=== PATIENT | female | born 1950 | race Caucasian/White ===

== ENCOUNTER 2021-11-27 15:51 | Inpatient (IN) | payer OTHER, MEDICARE ==
[2021-11-27] MEDS ORDERED: Lidocaine 1% PF 5 ML VIAL ONE (16:39)
[2021-11-27] MEDS ORDERED: HYDROmorphone 0.5 MG/0.5 ML SYRINGE ONE (16:39)
[2021-11-27] MEDS ORDERED: Ketamine 50 MG/ML (10ML VIAL) ONE (16:39)
[2021-11-27] MEDS ORDERED: Ondansetron PF 4 MG/2 ML Vial IVP PRN (16:53)
[2021-11-27] MEDS ORDERED: Morphine 2 MG/ML VIAL SLOW IVP PRN (16:53)
[2021-11-27] MEDS ORDERED: Promethazine HCl 25 MG/ML VIAL IM PRN (16:53)
[2021-11-27] MEDS ORDERED: hydrALAZINE 20 MG/ML VIAL SLOW IVP PRN (16:53)
[2021-11-27] MEDS ORDERED: Cyclobenzaprine 10 MG TAB PO PRN (16:56)
[2021-11-27] MEDS ORDERED: Ketorolac Tromethamine 30 MG/ML VIAL IVP SCH ×3 (17:00→20:15)
[2021-11-27] MEDS ORDERED: traMADol HCl 50 MG TAB PO SCH ×2 (17:00→20:15)
[2021-11-27 18:16] LABS: Prothrombin Time 13.2 sec (12.0-14.7)
[2021-11-27 18:17] LABS: PTT 32.5 sec (22.9-36.1)
[2021-11-27 18:24] LABS: Anion Gap 13 mmol/L (10-20); BUN (Urea Nitrogen) 8 mg/dL (9.8-20.1); Calc. Creatinine Clearance 0 mL/min (70-130); Calcium 8.9 mg/dL (7.8-10.44); Carbon Dioxide 24 mmol/L (23-31); Chloride 106 mmol/L (98-107); Glucose 111 mg/dL (83-110); Magnesium 1.9 mg/dL (1.6-2.6); Phosphorus 3.9 mg/dL (2.3-4.7); Potassium 3.8 mmol/L (3.5-5.1); Sodium 139 mmol/L (136-145)
[2021-11-27] MEDS ORDERED: Acetaminophen 500 MG TAB PO SCH ×2 (18:30→20:00)
[2021-11-27 18:33] LABS: #Basophils 0.1 thou/uL (0.0-0.2); #Eosinphils 0.1 thou/uL (0.0-0.7); #Lymphocytes 1.3 thou/uL (1.20-3.40); #Monocytes 0.8 thou/uL (0.11-0.59); #Neutrophils 10.3 thou/uL (1.40-6.50); %Basophils 0.4 % (0.0-1.0); %Eosinophils 0.5 % (0.0-10.0); %Monocytes 6.2 % (0.0-10.0); %Neutrophils 82.8 % (42.0-75.0); Hemoglobin 12.5 g/dL (12.0-16.0); Mean Corpuscular HGB CONC 32.5 g/dL (32.0-36.0); Mean Corpuscular Hemoglobin 32.1 pg (27.0-31.0); Mean Corpuscular Volume 98.7 fL (78.0-98.0); Mean Platelet Volume 7.3 fL (7.4-10.4); Platelet Count 324 thou/uL (130-400); RBC Distribution Width 11.3 % (11.5-14.5); White Blood Cell (WBC) Count 12.4 thou/uL (4.8-10.8)
[2021-11-27] MEDS: Senokot S 8.6-50 MG TAB PO SCH (21:05)
[2021-11-27] MEDS: Famotidine/PF 20 mg/2ml Vial SLOW IVP SCH (21:06)
[2021-11-27] MEDS: Sodium Chloride 0.9% 1,000 ML IV SCH (21:08)
[2021-11-27 21:37] VITALS: BMI 28.0
[2021-11-28] MEDS: Ketorolac Tromethamine 30 MG/ML VIAL IVP SCH ×4 (01:18→17:38)
[2021-11-28] MEDS: traMADol HCl 50 MG TAB PO SCH ×4 (01:18→17:36)
[2021-11-28] MEDS: Acetaminophen 500 MG TAB PO SCH ×4 (01:18→17:37)
[2021-11-28 05:09] LABS: SARS-CoV-2 NAA Rapid Test Not Detected (NotDetected)
[2021-11-28] MEDS: Sodium Chloride 0.9% 1,000 ML IV SCH ×2 (05:36→10:21)
[2021-11-28] MEDS ORDERED: Clindamycin/D5W 900 MG in Premix Bag 1 BAG IVPB SCH (09:00)
[2021-11-28] MEDS: Polyethylene Glycol 3350 17 GM Packet PO SCH (09:10)
[2021-11-28] MEDS: Famotidine/PF 20 mg/2ml Vial SLOW IVP SCH ×2 (09:22→20:51)
[2021-11-28] MEDS: Senokot S 8.6-50 MG TAB PO SCH ×2 (09:23→20:51)
[2021-11-28] MEDS ORDERED: Clindamycin/D5W 900 mg/50 ml Premix Bag ONE (10:13)
[2021-11-28] MEDS ORDERED: fentaNYL Citrate/PF 100 MCG/2 ML SYRINGE ONE (10:14)
[2021-11-28] MEDS ORDERED: Lidocaine 1% PF 5 ML VIAL ONE (10:29)
[2021-11-28] MEDS ORDERED: PROPOFOL 200 MG/20 ML VIAL ONE (10:29)
[2021-11-28] MEDS ORDERED: Glycopyrrolate 0.2 MG/ML 5 ML SYRINGE ONE (10:29)
[2021-11-28] MEDS ORDERED: ePHEDrine 50 MG/ML VIAL ONE (10:29)
[2021-11-28] MEDS ORDERED: PHENYLEPHRINE-NS 100 MCG/ML 10 ML SYRINGE ONE (10:29)
[2021-11-28] MEDS ORDERED: Ondansetron PF 4 MG/2 ML Vial ONE (10:29)
[2021-11-28] MEDS ORDERED: Dexamethasone 20 MG/5 ML VIAL ONE (10:29)
[2021-11-28] MEDS ORDERED: Rocuronium Bromide 10 MG/ML (10ML VIAL) ONE (10:29)
[2021-11-28] MEDS ORDERED: HYDROmorphone 2 MG/ML VIAL ONE (11:14)
[2021-11-28] MEDS ORDERED: SUGAMMADEX SODIUM 200 MG/2 ML VIAL ONE (11:43)
[2021-11-28] MEDS ORDERED: Promethazine HCl 25 MG/ML VIAL IVPB PRN (12:09)
[2021-11-28] MEDS ORDERED: Ondansetron HCl/PF 4 MG/2 ML Vial IVP PRN (12:09)
[2021-11-28] MEDS ORDERED: Promethazine HCl 25 MG/ML VIAL IM PRN (12:09)
[2021-11-28] MEDS ORDERED: Fentanyl 100 MCG/2 ML VIAL ONE (12:18)
[2021-11-28] MEDS: Clindamycin/D5W 900 MG in Premix Bag 1 BAG IVPB SCH (17:39)
[2021-11-29] MEDS: traMADol HCl 50 MG TAB PO SCH ×3 (00:35→11:14)
[2021-11-29] MEDS: Acetaminophen 500 MG TAB PO SCH ×3 (00:35→11:14)
[2021-11-29] MEDS: Clindamycin/D5W 900 MG in Premix Bag 1 BAG IVPB SCH (01:50)
[2021-11-29] MEDS: Famotidine/PF 20 mg/2ml Vial SLOW IVP SCH (08:52)
[2021-11-29] MEDS: Polyethylene Glycol 3350 17 GM Packet PO SCH (08:52)
[2021-11-29] MEDS: Senokot S 8.6-50 MG TAB PO SCH (08:52)
[2021-11-29 11:47] VITALS: BP 149/82; TEMP 97.9
[2021-11-29] MEDS ORDERED: Hydrochlorothiazide 25 MG TAB PO SCH (12:33)
[2021-11-30] MEDS ORDERED: Levothyroxine Sodium 112 MCG TAB PO SCH (06:00)
[2021-11-30] MEDS ORDERED: Hydrochlorothiazide 25 MG TAB PO SCH (09:00)
[2021-11-30] MEDS ORDERED: busPIRone HCl 5 MG TAB PO SCH (09:00)
== END 2021-11-29 13:24 | disposition home or self-care (01) | DRG 494 ==
LOC: ERS 15:51 → SURG A 17:21
PROVIDERS: ADMIT Specialist; ATTEND Specialist
PROC: 0PSG04Z Reposition Left Humeral Shaft with Internal Fixation Device, Open Approach (ICD-10-PCS; principal; 2021-11-28)
DX: S42.332A Displaced oblique fracture of shaft of humerus, left arm, initial encounter for closed fracture (principal); Z20.822 Contact with and (suspected) exposure to COVID-19; I10 Essential (primary) hypertension; E03.9 Hypothyroidism, unspecified; F41.9 Anxiety disorder, unspecified; M06.9 Rheumatoid arthritis, unspecified; Z96.652 Presence of left artificial knee joint; W01.0XXA Fall on same level from slipping, tripping and stumbling without subsequent striking against object, initial encounter; Y92.000 Kitchen of unspecified non-institutional (private) residence as the place of occurrence of the external cause; Z79.899 Other long term (current) drug therapy; Z79.890 Hormone replacement therapy; Z88.0 Allergy status to penicillin
CPT/HCPCS: 29065; 36415; 72190; 76000; 80048; 83735; 84100; 85025; 85610; 85730; 86850; 86900; 86901; 96374; C1713; G0390; J1100; J1170; J1885; J2405; J2704; J3010; J3490; J7050; S0028; U0002; U0003; U0005

== ENCOUNTER 2021-12-29 14:11 | Outpatient (CLI) | payer MEDICARE, OTHER | END 2021-12-29 14:12 | disposition home or self-care (01) | LOC: BICULT 14:11 | PROVIDERS: ATTEND Family Medicine | DX: E04.1 Nontoxic single thyroid nodule (principal) | CPT/HCPCS: 76536 ==

== ENCOUNTER 2022-01-11 00:09 | Inpatient (IN) | payer OTHER ==
[2022-01-11] MEDS ORDERED: Ondansetron PF 4 MG/2 ML Vial IVP PRN (02:55)
[2022-01-11] MEDS ORDERED: HumaLOG 300 UNITS/3 ML VIAL SC PRN (02:55)
[2022-01-11] MEDS ORDERED: Dextrose 5% in Water 1,000 ML IV PRN (02:55)
[2022-01-11] MEDS ORDERED: Ondansetron ODT 4 MG TAB PO PRN (02:55)
[2022-01-11] MEDS ORDERED: Dextrose 50% Abboject 50 ML SYRINGE SLOW IVP PRN (02:55)
[2022-01-11 02:58] VITALS: BMI 27.0
[2022-01-11] MEDS ORDERED: traMADol HCl 50 MG TAB PO PRN (03:02)
[2022-01-11] MEDS ORDERED: Morphine 2 MG/ML VIAL SLOW IVP PRN (03:04)
[2022-01-11] MEDS ORDERED: Potassium Chloride 20 MEQ TAB PO SCH (03:15)
[2022-01-11] MEDS: Lactated Ringer's 1,000 ML IV SCH ×2 (03:40→15:16)
[2022-01-11] MEDS: Cyclobenzaprine 10 MG TAB PO PRN ×2 (03:41→15:14)
[2022-01-11] MEDS: Acetaminophen 500 MG TAB PO SCH ×4 (03:41→21:30)
[2022-01-11] MEDS: Ibuprofen 200 MG TAB PO SCH ×3 (03:42→21:27)
[2022-01-11] MEDS: traMADol HCl 50 MG TAB PO SCH ×4 (03:42→21:28)
[2022-01-11] MEDS: Levothyroxine Sodium 112 MCG TAB PO SCH (05:40)
[2022-01-11 06:34] LABS: #Monocytes 0.8 thou/uL (0.11-0.59); #Neutrophils 7.8 thou/uL (1.40-6.50); %Eosinophils 0.2 % (0.0-10.0); %Lymphocytes 10.6 % (21.0-51.0); %Neutrophils 81.2 % (42.0-75.0); Hemoglobin 10.5 g/dL (12.0-16.0); Mean Corpuscular HGB CONC 32.7 g/dL (32.0-36.0); Mean Corpuscular Hemoglobin 31.9 pg (27.0-31.0); Mean Corpuscular Volume 97.6 fL (78.0-98.0); Mean Platelet Volume 6.7 fL (7.4-10.4); Platelet Count 296 thou/uL (130-400); RBC Distribution Width 11.8 % (11.5-14.5); Red Blood Cell (RBC) Count 3.29 mill/uL (4.20-5.40); White Blood Cell (WBC) Count 9.6 thou/uL (4.8-10.8)
[2022-01-11 07:00] LABS: Anion Gap 19 mmol/L (10-20); BUN (Urea Nitrogen) 14 mg/dL (9.8-20.1); Calc. Creatinine Clearance 79 mL/min (70-130); Calcium 8.4 mg/dL (7.8-10.44); Carbon Dioxide 20 mmol/L (23-31); Chloride 102 mmol/L (98-107); Glucose 122 mg/dL (83-110); Magnesium 1.6 mg/dL (1.6-2.6); Potassium 3.7 mmol/L (3.5-5.1); Sodium 137 mmol/L (136-145)
[2022-01-11] MEDS: busPIRone HCl 5 MG TAB PO SCH (08:52)
[2022-01-11] MEDS: Famotidine 20 MG TAB PO SCH ×2 (08:52→21:29)
[2022-01-11] MEDS: MULTIVIT/IRON SULF/FOLIC ACID 1 EACH TAB PO SCH (09:02)
[2022-01-11] MEDS: Gabapentin 300 MG CAP PO SCH ×3 (09:02→21:28)
[2022-01-11] MEDS: Ascorbic Acid 500 mg Chewable Tablet PO SCH (09:02)
[2022-01-11 10:02] LABS: Bacteria/HPF None Seen HPF (None Seen); Bilirubin Negative (Negative); Blood, Urine Negative (Negative); Clarity Clear (Clear); Glucose, Urine (Dipstick) Normal (Negative); Ketone, Urine Trace mg/dL (Negative); Leukocyte Negative Leu/uL (Negative); Nitrite Negative (Negative); Protein, Urine (Dipstick) Negative (Neg-Trace); RBC/HPF None Seen HPF (0-3); Specific Gravity, Urine 1.016 (1.002-1.036); Squamous Epithelial None Seen HPF (0-3); Urobilinogen Normal mg/dL (Less than 2); WBC/HPF 0-3 HPF (0-3)
[2022-01-11 10:03] LABS: Urine Culture Reflex No No
[2022-01-11] MEDS ORDERED: fentaNYL Citrate/PF 100 MCG/2 ML SYRINGE ONE ×2 (11:32→12:20)
[2022-01-11] MEDS ORDERED: Clindamycin/D5W 900 mg/50 ml Premix Bag ONE (11:59)
[2022-01-11] MEDS ORDERED: Dexamethasone 20 MG/5 ML VIAL ONE (12:03)
[2022-01-11] MEDS ORDERED: Glycopyrrolate 0.2 MG/ML 5 ML SYRINGE ONE (12:03)
[2022-01-11] MEDS ORDERED: Ondansetron PF 4 MG/2 ML Vial ONE (12:03)
[2022-01-11] MEDS ORDERED: Ketorolac Tromethamine 30 MG/ML VIAL ONE (12:03)
[2022-01-11] MEDS ORDERED: Labetalol HCl 100 MG/20 ML VIAL ONE (12:03)
[2022-01-11] MEDS ORDERED: Succinylcholine 200 MG/10 ml SYRINGE FS ONE (12:03)
[2022-01-11] MEDS ORDERED: Lidocaine 1% PF 5 ML VIAL ONE (12:03)
[2022-01-11] MEDS ORDERED: Rocuronium Bromide 10 MG/ML (10ML VIAL) ONE (12:03)
[2022-01-11] MEDS ORDERED: PROPOFOL 200 MG/20 ML VIAL ONE (12:03)
[2022-01-11] MEDS ORDERED: Clindamycin/D5W 900 MG in Premix Bag 1 BAG IVPB SCH (12:30)
[2022-01-11] MEDS ORDERED: SUGAMMADEX SODIUM 200 MG/2 ML VIAL ONE (13:29)
[2022-01-11] MEDS ORDERED: Ondansetron HCl/PF 4 MG/2 ML Vial IVP PRN (14:02)
[2022-01-11] MEDS ORDERED: Promethazine HCl 25 MG/ML VIAL IVPB PRN (14:02)
[2022-01-11] MEDS ORDERED: Promethazine HCl 25 MG/ML VIAL IM PRN (14:02)
[2022-01-11] MEDS: Clindamycin/D5W 900 MG in Premix Bag 1 BAG IVPB SCH (21:27)
[2022-01-12] MEDS: Clindamycin/D5W 900 MG in Premix Bag 1 BAG IVPB SCH (03:37)
[2022-01-12] MEDS: Ibuprofen 200 MG TAB PO SCH ×3 (03:38→20:46)
[2022-01-12] MEDS: Cyclobenzaprine 10 MG TAB PO PRN (03:38)
[2022-01-12] MEDS: Acetaminophen 500 MG TAB PO SCH ×4 (03:39→22:08)
[2022-01-12] MEDS: traMADol HCl 50 MG TAB PO SCH ×4 (03:39→22:08)
[2022-01-12 05:46] LABS: #Lymphocytes 0.4 thou/uL (1.20-3.40); #Monocytes 0.6 thou/uL (0.11-0.59); #Neutrophils 7.7 thou/uL (1.40-6.50); %Eosinophils 0.1 % (0.0-10.0); %Lymphocytes 4.5 % (21.0-51.0); %Monocytes 6.9 % (0.0-10.0); %Neutrophils 88.5 % (42.0-75.0); Hemoglobin 7.7 g/dL (12.0-16.0); Mean Corpuscular HGB CONC 32.6 g/dL (32.0-36.0); Mean Corpuscular Hemoglobin 32.5 pg (27.0-31.0); Mean Corpuscular Volume 99.4 fL (78.0-98.0); Mean Platelet Volume 6.9 fL (7.4-10.4); Platelet Count 225 thou/uL (130-400); RBC Distribution Width 11.7 % (11.5-14.5); Red Blood Cell (RBC) Count 2.36 mill/uL (4.20-5.40); White Blood Cell (WBC) Count 8.7 thou/uL (4.8-10.8)
[2022-01-12] MEDS: Levothyroxine Sodium 112 MCG TAB PO SCH (05:55)
[2022-01-12 07:43] LABS: Anion Gap 14 mmol/L (10-20); BUN (Urea Nitrogen) 23 mg/dL (9.8-20.1); Calc. Creatinine Clearance 55 mL/min (70-130); Calcium 7.8 mg/dL (7.8-10.44); Carbon Dioxide 25 mmol/L (23-31); Chloride 97 mmol/L (98-107); Glucose 145 mg/dL (83-110); Magnesium 1.7 mg/dL (1.6-2.6); Phosphorus 3.6 mg/dL (2.3-4.7); Potassium 4.1 mmol/L (3.5-5.1); Sodium 132 mmol/L (136-145)
[2022-01-12] MEDS: Gabapentin 300 MG CAP PO SCH ×3 (09:04→20:48)
[2022-01-12] MEDS: Enoxaparin Sodium 40 MG/0.4 ML SYRINGE SC SCH (09:04)
[2022-01-12] MEDS: Famotidine 20 MG TAB PO SCH ×2 (09:04→20:43)
[2022-01-12] MEDS: Ascorbic Acid 500 mg Chewable Tablet PO SCH ×2 (09:04→20:43)
[2022-01-12] MEDS: busPIRone HCl 5 MG TAB PO SCH (09:04)
[2022-01-12] MEDS ORDERED: Magnesium 2 GM/50 ML(in water) 2 GM in Premix Bag 1 BAG IVPB SCH (10:00)
[2022-01-12] MEDS ORDERED: PHOS-NAK 1 PKT PACK PO SCH (10:00)
[2022-01-12] MEDS: MULTIVIT/IRON SULF/FOLIC ACID 1 EACH TAB PO SCH (10:34)
[2022-01-12] MEDS: Ferrous Sulfate 325 MG TAB PO SCH (17:23)
[2022-01-12] MEDS: Melatonin 3 MG TAB PO SCH (20:48)
[2022-01-13] MEDS: Acetaminophen 500 MG TAB PO SCH ×4 (05:11→21:04)
[2022-01-13] MEDS: traMADol HCl 50 MG TAB PO SCH ×4 (05:12→21:06)
[2022-01-13] MEDS: Levothyroxine Sodium 112 MCG TAB PO SCH (05:13)
[2022-01-13] MEDS: Ibuprofen 200 MG TAB PO SCH ×3 (05:13→21:02)
[2022-01-13 06:08] LABS: #Lymphocytes 1.4 thou/uL (1.20-3.40); #Monocytes 0.8 thou/uL (0.11-0.59); #Neutrophils 4.8 thou/uL (1.40-6.50); %Basophils 0.1 % (0.0-1.0); %Eosinophils 0.4 % (0.0-10.0); %Lymphocytes 20.1 % (21.0-51.0); %Monocytes 11.4 % (0.0-10.0); Hemoglobin 7.3 g/dL (12.0-16.0); Mean Corpuscular HGB CONC 32.8 g/dL (32.0-36.0); Mean Corpuscular Hemoglobin 32.3 pg (27.0-31.0); Mean Corpuscular Volume 98.7 fL (78.0-98.0); Mean Platelet Volume 7.6 fL (7.4-10.4); Platelet Count 229 thou/uL (130-400); RBC Distribution Width 11.7 % (11.5-14.5); Red Blood Cell (RBC) Count 2.26 mill/uL (4.20-5.40)
[2022-01-13 06:43] LABS: Anion Gap 13 mmol/L (10-20); BUN (Urea Nitrogen) 22 mg/dL (9.8-20.1); Calc. Creatinine Clearance 59 mL/min (70-130); Calcium 8.3 mg/dL (7.8-10.44); Carbon Dioxide 26 mmol/L (23-31); Chloride 98 mmol/L (98-107); Estimated GFR 60; Glucose 99 mg/dL (83-110); Magnesium 2.3 mg/dL (1.6-2.6); Phosphorus 3.6 mg/dL (2.3-4.7); Potassium 4.1 mmol/L (3.5-5.1); Sodium 133 mmol/L (136-145)
[2022-01-13] MEDS: Enoxaparin Sodium 40 MG/0.4 ML SYRINGE SC SCH (08:38)
[2022-01-13] MEDS: busPIRone HCl 5 MG TAB PO SCH (08:39)
[2022-01-13] MEDS: Famotidine 20 MG TAB PO SCH ×2 (08:39→21:03)
[2022-01-13] MEDS: Ascorbic Acid 500 mg Chewable Tablet PO SCH ×2 (08:40→21:04)
[2022-01-13] MEDS: Ferrous Sulfate 325 MG TAB PO SCH ×2 (08:40→17:35)
[2022-01-13] MEDS: MULTIVIT/IRON SULF/FOLIC ACID 1 EACH TAB PO SCH (08:40)
[2022-01-13] MEDS: Gabapentin 300 MG CAP PO SCH ×3 (08:41→21:02)
[2022-01-13] MEDS: Melatonin 3 MG TAB PO SCH (21:03)
[2022-01-14] MEDS: Levothyroxine Sodium 112 MCG TAB PO SCH (05:36)
[2022-01-14] MEDS: Acetaminophen 500 MG TAB PO SCH ×4 (05:36→21:40)
[2022-01-14] MEDS: Ibuprofen 200 MG TAB PO SCH ×3 (05:37→21:39)
[2022-01-14] MEDS: traMADol HCl 50 MG TAB PO SCH ×3 (05:38→18:15)
[2022-01-14 06:05] LABS: #Eosinphils 0.1 thou/uL (0.0-0.7); #Lymphocytes 1.6 thou/uL (1.20-3.40); #Monocytes 0.7 thou/uL (0.11-0.59); #Neutrophils 2.8 thou/uL (1.40-6.50); %Basophils 0.3 % (0.0-1.0); %Eosinophils 1.7 % (0.0-10.0); %Lymphocytes 30.6 % (21.0-51.0); %Monocytes 13.7 % (0.0-10.0); %Neutrophils 53.7 % (42.0-75.0); Mean Corpuscular HGB CONC 32.7 g/dL (32.0-36.0); Mean Corpuscular Hemoglobin 32.3 pg (27.0-31.0); Mean Corpuscular Volume 98.7 fL (78.0-98.0); Mean Platelet Volume 7.6 fL (7.4-10.4); Platelet Count 246 thou/uL (130-400); RBC Distribution Width 11.9 % (11.5-14.5); Red Blood Cell (RBC) Count 2.77 mill/uL (4.20-5.40); White Blood Cell (WBC) Count 5.3 thou/uL (4.8-10.8)
[2022-01-14 06:36] LABS: Anion Gap 12 mmol/L (10-20); BUN (Urea Nitrogen) 21 mg/dL (9.8-20.1); Calc. Creatinine Clearance 63 mL/min (70-130); Calcium 8.6 mg/dL (7.8-10.44); Carbon Dioxide 27 mmol/L (23-31); Chloride 102 mmol/L (98-107); Estimated GFR 64; Glucose 83 mg/dL (83-110); Magnesium 2.3 mg/dL (1.6-2.6); Phosphorus 3.3 mg/dL (2.3-4.7); Potassium 4.3 mmol/L (3.5-5.1); Sodium 137 mmol/L (136-145)
[2022-01-14] MEDS: Ferrous Sulfate 325 MG TAB PO SCH ×3 (09:36→21:39)
[2022-01-14] MEDS: busPIRone HCl 5 MG TAB PO SCH (09:58)
[2022-01-14] MEDS: Senokot S 8.6-50 MG TAB PO SCH ×2 (09:58→21:39)
[2022-01-14] MEDS: Polyethylene Glycol 3350 17 GM Packet PO SCH (09:58)
[2022-01-14] MEDS: MULTIVIT/IRON SULF/FOLIC ACID 1 EACH TAB PO SCH (09:58)
[2022-01-14] MEDS: Enoxaparin Sodium 40 MG/0.4 ML SYRINGE SC SCH (09:58)
[2022-01-14] MEDS: Gabapentin 300 MG CAP PO SCH ×3 (09:59→21:40)
[2022-01-14] MEDS: Ascorbic Acid 500 mg Chewable Tablet PO SCH ×2 (09:59→21:38)
[2022-01-14] MEDS: Famotidine 20 MG TAB PO SCH ×2 (09:59→21:38)
[2022-01-14] MEDS: Melatonin 3 MG TAB PO SCH (21:38)
[2022-01-15] MEDS: traMADol HCl 50 MG TAB PO SCH ×3 (01:33→12:01)
[2022-01-15] MEDS: Acetaminophen 500 MG TAB PO SCH ×3 (04:54→15:44)
[2022-01-15] MEDS: Ibuprofen 200 MG TAB PO SCH ×2 (04:54→12:02)
[2022-01-15] MEDS: Levothyroxine Sodium 112 MCG TAB PO SCH (05:00)
[2022-01-15] MEDS: MULTIVIT/IRON SULF/FOLIC ACID 1 EACH TAB PO SCH (08:58)
[2022-01-15] MEDS: Famotidine 20 MG TAB PO SCH (08:58)
[2022-01-15] MEDS: Ferrous Sulfate 325 MG TAB PO SCH (08:59)
[2022-01-15] MEDS: Ascorbic Acid 500 mg Chewable Tablet PO SCH (08:59)
[2022-01-15] MEDS: Polyethylene Glycol 3350 17 GM Packet PO SCH (09:00)
[2022-01-15] MEDS: Senokot S 8.6-50 MG TAB PO SCH (09:00)
[2022-01-15] MEDS: busPIRone HCl 5 MG TAB PO SCH (09:00)
[2022-01-15] MEDS: Gabapentin 300 MG CAP PO SCH ×2 (09:01→15:45)
[2022-01-15] MEDS: Enoxaparin Sodium 40 MG/0.4 ML SYRINGE SC SCH (09:02)
[2022-01-15 12:34] VITALS: TEMP 97.9
[2022-01-15 15:28] VITALS: BP 145/81
== END 2022-01-15 18:20 | disposition home or self-care (01) | DRG 480 ==
LOC: SJJU 00:09
PROVIDERS: ADMIT Surgery; ATTEND Surgery
PROC: 0QSB06Z Reposition Right Lower Femur with Intramedullary Internal Fixation Device, Open Approach (ICD-10-PCS; principal; 2022-01-11)
PROC: 30233N1 Transfusion of Nonautologous Red Blood Cells into Peripheral Vein, Percutaneous Approach (ICD-10-PCS; 2022-01-13)
DX: S72.401A Unspecified fracture of lower end of right femur, initial encounter for closed fracture (principal); U07.1 COVID-19; D62 Acute posthemorrhagic anemia; E03.9 Hypothyroidism, unspecified; I10 Essential (primary) hypertension; F41.9 Anxiety disorder, unspecified; M06.9 Rheumatoid arthritis, unspecified; F10.129 Alcohol abuse with intoxication, unspecified; W19.XXXA Unspecified fall, initial encounter; S42.002A Fracture of unspecified part of left clavicle, initial encounter for closed fracture; D64.9 Anemia, unspecified; Z90.710 Acquired absence of both cervix and uterus; Z88.1 Allergy status to other antibiotic agents; Y92.89 Other specified places as the place of occurrence of the external cause
CPT/HCPCS: 36415; 36416; 36430; 71045; 76000; 80048; 81001; 83735; 84100; 85025; 86850; 86900; 86901; C1713; J1100; J1650; J1815; J1885; J2270; J2405; J2704; J3475; J3490; J7120; P9016

== ENCOUNTER 2022-08-30 09:33 | Outpatient (CLI) | payer OTHER ==
[2022-08-30] MEDS ORDERED: Iopamidol-370 76% 500 ML 1 ML ONE (10:28)
== END 2022-08-30 09:34 | disposition home or self-care (01) ==
LOC: BICCT 09:33
PROVIDERS: ATTEND Family Medicine
DX: C18.2 Malignant neoplasm of ascending colon (principal)
CPT/HCPCS: 74178; 82565; Q9967

== ENCOUNTER 2025-02-13 11:15 | Outpatient (CLI) | payer OTHER | END 2025-02-13 11:16 | disposition home or self-care (01) | LOC: BICRAD 11:15 | PROVIDERS: ATTEND Family Medicine | DX: S99.922A Unspecified injury of left foot, initial encounter (principal) ==

== ENCOUNTER 2025-03-05 14:51 | Outpatient (CLI) | payer OTHER ==
[2025-03-05 15:59] LABS: #Basophils 0.05 10x3/uL (0.0-0.2); #Eosinophils 0.14 10x3/uL (0.0-0.7); #Monocytes 0.59 10x3/uL (0.11-0.59); #Neutrophils 2.70 10x3/uL (1.40-6.50); %Basophils 1.0 % (0.0-1.0); %Eosinophils 2.9 % (0.0-10.0); %Lymphocytes 28.0 % (21.0-51.0); %Monocytes 12.2 % (0.0-10.0); %Neutrophils 55.7 % (42.0-75.0); Hematocrit 38.9 % (36.0-47.0); Hemoglobin 12.7 g/dL (12.0-16.0); Mean Corpuscular Hemoglobin 30.2 pg (27.0-31.0); Mean Corpuscular Volume 92.6 fL (78.0-98.0); Platelet Count 317 10x3/uL (130-400); Red Blood Cell (RBC) Count 4.20 mill/uL (4.20-5.40); White Blood Cell (WBC) Count 4.85 10x3/uL (4.8-10.8)
[2025-03-05 16:08] LABS: Anion Gap 13 mmol/L (10-20); BUN (Urea Nitrogen) 13 mg/dL (9.8-20.1); Calc. Creatinine Clearance 0 mL/min (70-130); Calcium 9.2 mg/dL (7.8-10.44); Carbon Dioxide 27 mmol/L (23-31); Chloride 101 mmol/L (98-107); Glucose 98 mg/dL (83-110); Potassium 4.0 mmol/L (3.5-5.1); Sodium 137 mmol/L (136-145)
== END 2025-03-05 14:52 | disposition home or self-care (01) ==
LOC: LABBT 14:51
PROVIDERS: ATTEND Orthopaedic Surgery
DX: Z01.818 Encounter for other preprocedural examination (principal); M67.431 Ganglion, right wrist
CPT/HCPCS: 71046; 80048; 85025; 93005; 93010

== ENCOUNTER 2025-04-26 14:40 | Inpatient (IN) | payer OTHER ==
[~2025-04-26 14:40] MED LIST: Iopamidol-370 76% 500 ML MDV (1 ML CHARGE) ONE
[2025-04-26 15:37] LABS: #Basophils 0.05 10x3/uL (0.0-0.2); #Eosinophils 0.06 10x3/uL (0.0-0.7); #Monocytes 0.73 10x3/uL (0.11-0.59); #Neutrophils 5.17 10x3/uL (1.40-6.50); %Basophils 0.7 % (0.0-1.0); %Eosinophils 0.8 % (0.0-10.0); %Lymphocytes 18.6 % (21.0-51.0); %Monocytes 9.9 % (0.0-10.0); %Neutrophils 69.7 % (42.0-75.0); Hematocrit 34.8 % (36.0-47.0); Hemoglobin 12.7 g/dL (12.0-16.0); Mean Corpuscular Hemoglobin 31.2 pg (27.0-31.0); Mean Corpuscular Volume 85.5 fL (78.0-98.0); Platelet Count 314 10x3/uL (130-400); Red Blood Cell (RBC) Count 4.07 mill/uL (4.20-5.40); White Blood Cell (WBC) Count 7.41 10x3/uL (4.8-10.8)
[2025-04-26 16:00] LABS: ALT (SGPT) 32 U/L (Less than 34); AST (SGOT) 49 U/L (11-34); Albumin 4.3 g/dL (3.1-4.5); Alkaline Phosphatase 54 U/L (40-110); Anion Gap 20 mmol/L (10-20); BUN (Urea Nitrogen) 26 mg/dL (9.8-20.1); Bilirubin, Total 0.5 mg/dL (0.3-1.2); Calc. Creatinine Clearance 0 mL/min (70-130); Calcium 9.1 mg/dL (7.8-10.44); Carbon Dioxide 21 mmol/L (23-31); Chloride 87 mmol/L (98-107); Globulin 3.6 g/dL (2.4-3.5); Glucose 80 mg/dL (83-110); Potassium 3.6 mmol/L (3.5-5.1); Sodium 124 mmol/L (136-145)
[2025-04-26] MEDS ORDERED: Guaifenesin DM 100-10/5 ML UDCUP PO PRN (17:16)
[2025-04-26] MEDS ORDERED: Calcium Carbonate 500 MG ChewTAB PO PRN (17:16)
[2025-04-26] MEDS ORDERED: Acetaminophen 325 MG TAB PO PRN (17:16)
[2025-04-26] MEDS ORDERED: Ondansetron PF 4 MG/2 ML Vial IVP PRN (17:16)
[2025-04-26 19:04] LABS: Osmolality, Serum 274 mOsm/kg (280-301)
[2025-04-26] MEDS: Famotidine 20 MG TAB PO SCH (21:23)
[2025-04-26] MEDS: Losartan 25 MG TAB PO SCH (21:24)
[2025-04-26] MEDS: Ezetimibe 10 MG TAB PO SCH (21:24)
[2025-04-26 22:30] LABS: Anion Gap 15 mmol/L (10-20); BUN (Urea Nitrogen) 23 mg/dL (9.8-20.1); Calc. Creatinine Clearance 0 mL/min (70-130); Calcium 9.2 mg/dL (7.8-10.44); Carbon Dioxide 24 mmol/L (23-31); Chloride 92 mmol/L (98-107); Glucose 81 mg/dL (83-110); Potassium 3.2 mmol/L (3.5-5.1); Sodium 128 mmol/L (136-145)
[2025-04-27 02:26] VITALS: BMI 25.8
[2025-04-27 05:39] LABS: Osmolality, Urine 252 mOsm/kg (50-1200)
[2025-04-27 05:52] LABS: Potassium, Urine Less than 10.0 mmol/L; Sodium, Urine 39 mmol/L (Not Available)
[2025-04-27 06:48] LABS: #Basophils 0.04 10x3/uL (0.0-0.2); #Eosinophils 0.11 10x3/uL (0.0-0.7); #Monocytes 0.59 10x3/uL (0.11-0.59); #Neutrophils 2.61 10x3/uL (1.40-6.50); %Basophils 0.9 % (0.0-1.0); %Eosinophils 2.4 % (0.0-10.0); %Lymphocytes 26.8 % (21.0-51.0); %Monocytes 12.9 % (0.0-10.0); %Neutrophils 56.8 % (42.0-75.0); Hematocrit 34.2 % (36.0-47.0); Hemoglobin 12.1 g/dL (12.0-16.0); Mean Corpuscular Hemoglobin 30.7 pg (27.0-31.0); Mean Corpuscular Volume 86.8 fL (78.0-98.0); Platelet Count 303 10x3/uL (130-400); Red Blood Cell (RBC) Count 3.94 mill/uL (4.20-5.40); White Blood Cell (WBC) Count 4.59 10x3/uL (4.8-10.8)
[2025-04-27 07:05] LABS: Anion Gap 15 mmol/L (10-20); BUN (Urea Nitrogen) 21 mg/dL (9.8-20.1); Calc. Creatinine Clearance 50 mL/min (70-130); Calcium 9.2 mg/dL (7.8-10.44); Carbon Dioxide 25 mmol/L (23-31); Chloride 94 mmol/L (98-107); Glucose 74 mg/dL (83-110); Magnesium 1.9 mg/dL (1.6-2.6); Potassium 3.2 mmol/L (3.5-5.1); Sodium 131 mmol/L (136-145)
[2025-04-27 07:06] LABS: Uric Acid 9.5 mg/dL (2.5-6.2)
[2025-04-27 07:20] LABS: Free T4 (Free Thyroxine) 1.4 ng/dL (0.70-1.48); Thyroid Stimulating Hormone 0.4548 uIU/mL (0.35-4.94)
[2025-04-27] MEDS: Enoxaparin 40 MG (0.4 mL) SYRINGE SC SCH (08:50)
[2025-04-27] MEDS: Cholecalciferol 1,000 UNITS (25 MCG) TAB PO SCH (08:51)
[2025-04-27 14:04] VITALS: BMI 25.8
[2025-04-28 00:27] VITALS: TEMP 98
[2025-04-28 06:49] LABS: Anion Gap 14 mmol/L (10-20); BUN (Urea Nitrogen) 11 mg/dL (9.8-20.1); Calc. Creatinine Clearance 56 mL/min (70-130); Calcium 9.3 mg/dL (7.8-10.44); Carbon Dioxide 26 mmol/L (23-31); Chloride 98 mmol/L (98-107); Glucose 89 mg/dL (83-110); Magnesium 1.9 mg/dL (1.6-2.6); Potassium 3.5 mmol/L (3.5-5.1); Sodium 134 mmol/L (136-145)
[2025-04-28 09:26] VITALS: BP 146/87
== END 2025-04-28 11:49 | disposition home or self-care (01) | DRG 641 ==
LOC: ERS 14:40 → T4-A 16:55
PROVIDERS: ADMIT Internal Medicine; ATTEND Internal Medicine
DX: E87.1 Hypo-osmolality and hyponatremia (principal); N17.9 Acute kidney failure, unspecified; E03.9 Hypothyroidism, unspecified; E78.5 Hyperlipidemia, unspecified; Z96.652 Presence of left artificial knee joint; E87.8 Other disorders of electrolyte and fluid balance, not elsewhere classified; N18.2 Chronic kidney disease, stage 2 (mild); I12.9 Hypertensive chronic kidney disease with stage 1 through stage 4 chronic kidney disease, or unspecified chronic kidney disease; F17.210 Nicotine dependence, cigarettes, uncomplicated; F41.9 Anxiety disorder, unspecified; E87.6 Hypokalemia; Z90.49 Acquired absence of other specified parts of digestive tract; Z88.0 Allergy status to penicillin; Z90.710 Acquired absence of both cervix and uterus; Z98.890 Other specified postprocedural states; Z87.81 Personal history of (healed) traumatic fracture; Z85.038 Personal history of other malignant neoplasm of large intestine; Z79.890 Hormone replacement therapy; Z79.899 Other long term (current) drug therapy; R07.89 Other chest pain
CPT/HCPCS: 36415; 71046; 71275; 80048; 80053; 82436; 82533; 83735; 83880; 83930; 83935; 84100; 84133; 84300; 84439; 84443; 84481; 84550; 85025; 85379; 93005; 94760; J1650; J7030; Q9967